=== PATIENT | female | born 1970 | race Hispanic/Latino ===

== ENCOUNTER 2023-04-04 06:54 | Day surgery (SDC) | payer OTHER ==
[2023-04-02 12:05] LABS: BASOPHILS % (AUTO) 0.4 % (0.0-5.0); EOSINOPHILS % (AUTO) 1.2 % (0.0-8.0); HEMATOCRIT 44.4 % (36-48); LYMPHOCYTES % (AUTO) 35.7 % (21.0-51.0); MEAN CORPUSCULAR HGB CONC 33.6 g/dL (32.0-36.0); MEAN CORPUSCULAR VOLUME 89.3 fL (79-99); MONOCYTES % (AUTO) 7.5 % (3.0-13.0); NEUTROPHILS % (AUTO) 54.9 % (40.0-77.0); PLATELET COUNT (AUTO) 244 K/uL (130-400); RED BLOOD CELL COUNT(AUTO) 4.97 MIL/uL (4.00-5.50); RED CELL DISTRIBUTION WIDTH 12.3 % (11.0-15.5); WHITE BLOOD COUNT (AUTO) 6.9 K/uL (4.8-10.8)
[2023-04-03 09:53] VITALS: BP 124/70
[2023-04-04] VITALS (18 sets, daily range): BP systolic 98–128; BP diastolic 50–78
[~2023-04-04] VITALS: Ht 162.6 cm; Wt 92.3 kg
[2023-04-04] MEDS ORDERED: LACTATED RINGERS 1000ML 1,000 ML IV ONE (07:01)
[2023-04-04] MEDS ORDERED: FENTANYL CITRATE PF 50 MCG/1 ML 2ML VIAL ONE (07:23)
[2023-04-04] MEDS ORDERED: ONDANSETRON 4MG INJ ONE ×2 (07:23→09:16)
[2023-04-04] MEDS ORDERED: MIDAZOLAM HCL 1 MG/ML 2ML VIAL ONE (07:23)
[2023-04-04] MEDS ORDERED: DEXAMETHASONE SOD PHOSPHATE 10MG/ML 1ML VIAL ONE (07:23)
[2023-04-04] MEDS ORDERED: LIDOCAINE PF 100MG/5ML (2%) SYRINGE 5ML ONE (07:23)
[2023-04-04] MEDS ORDERED: PROPOFOL 10 MG/ML 20ML VIAL IV ONE (07:23)
[2023-04-04] MEDS ORDERED: STRONG IODINE SOLN 14ML BOTTLE ONE (08:06)
[2023-04-04] MEDS ORDERED: LIDOCAINE 1%-EPI 1:100,000 20 ML VIAL IJ ONE ×2 (08:26→08:28)
[2023-04-04] MEDS ORDERED: STRONG IODINE SOLN 14ML BOTTLE TP ONE (08:26)
[2023-04-04] MEDS ORDERED: FERRIC SUBSULFATE ML TP ONE ×2 (08:26→08:40)
[2023-04-04] MEDS ORDERED: MEPERIDINE-PF 25 MG/ML SYG ONE (09:16)
== END 2023-04-04 10:50 | disposition home or self-care (01) ==
LOC: DAH 06:54
PROVIDERS: ATTEND Obstetrics & Gynecology
DX: R87.613 High grade squamous intraepithelial lesion on cytologic smear of cervix (HGSIL) (principal); Z20.822 Contact with and (suspected) exposure to COVID-19; C53.9 Malignant neoplasm of cervix uteri, unspecified; N72 Inflammatory disease of cervix uteri; E66.01 Morbid (severe) obesity due to excess calories; Z98.891 History of uterine scar from previous surgery; Z82.49 Family history of ischemic heart disease and other diseases of the circulatory system; Z83.3 Family history of diabetes mellitus; Z80.0 Family history of malignant neoplasm of digestive organs; Z80.6 Family history of leukemia; Z83.49 Family history of other endocrine, nutritional and metabolic diseases; Z68.34 Body mass index [BMI] 34.0-34.9, adult
CPT/HCPCS: 84703; 85025; 87426; 36415; 57520; A4663; A4351; J7120; J3010; J3490 ×2; J1100; J2001; J2250; J2704; J2405 ×2; J2175; A4215 ×2; A4223; A4222; A4221

== ENCOUNTER → 2023-05-09 | Outpatient (CLI) | payer OTHER | END | disposition home or self-care (01) | LOC: RAH 15:06 | PROVIDERS: ATTEND Obstetrics & Gynecology | DX: Z12.31 Encounter for screening mammogram for malignant neoplasm of breast (principal) | CPT/HCPCS: 77067 ==

== ENCOUNTER 2023-05-30 06:03 | Day surgery (SDC) | payer OTHER ==
[2023-05-28 10:36] VITALS: BP 137/70; PULSE 55; RESP 16
[2023-05-28 10:49] LABS: BASOPHILS # (AUTO) 0.05 K/uL (0.00-0.20); BASOPHILS % (AUTO) 0.6 % (0.0-5.0); EOSINOPHILS # (AUTO) 0.12 K/uL (0.00-0.70); EOSINOPHILS % (AUTO) 1.4 % (0.0-8.0); IMMATURE GRANULOCYTE ABSOLUTE 0.02 K/uL (0-1); LYMPHOCYTES # (AUTO) 2.6 K/uL (1.0-4.8); LYMPHOCYTES % (AUTO) 30.3 % (21.0-51.0); MEAN CORPUSCULAR VOLUME 90.9 fL (79-99); MONOCYTES # (AUTO) 0.7 K/uL (0.1-1.0); MONOCYTES % (AUTO) 8.5 % (3.0-13.0); PLATELET COUNT (AUTO) 213 K/uL (130-400); RED BLOOD CELL COUNT(AUTO) 4.73 MIL/uL (4.00-5.50); WHITE BLOOD COUNT (AUTO) 8.5 K/uL (4.8-10.8)
[2023-05-30] VITALS (22 sets, daily range): BP systolic 94–132; BP diastolic 58–79; PULSE 58–72; RESP 12–18
[~2023-05-30] VITALS: Ht 162.6 cm; Wt 92.4 kg
[2023-05-30] MEDS ORDERED: BUPIVACAINE/PF 0.25% 30ML VIAL IJ ONE ×3 (09:03→13:00)
[2023-05-30] MEDS ORDERED: CEFAZOLIN SODIUM 2 GM VIAL ONE (11:33)
[2023-05-30] MEDS ORDERED: DEXAMETHASONE SOD PHOSPHATE 4 MG/ML 1ML VIAL ONE (11:33)
[2023-05-30] MEDS ORDERED: DEXAMETHASONE SOD PHOSPHATE 10MG/ML 1ML VIAL ONE (11:34)
[2023-05-30] MEDS ORDERED: LIDOCAINE PF 100MG/5ML (2%) SYRINGE 5ML ONE (11:34)
[2023-05-30] MEDS ORDERED: SCOPOLAMINE HYDROBROMIDE 1 EACH ADH..PATCH TD ONE (11:34)
[2023-05-30] MEDS ORDERED: LACTATED RINGERS 1000ML 1,000 ML IV ONE (11:34)
[2023-05-30] MEDS ORDERED: METRONIDAZOLE 500MG/100ML BAG 100 ML ONE (11:34)
[2023-05-30] MEDS ORDERED: GLYCOPYRROLATE 1 MG/5 ML SYRINGE ONE (11:34)
[2023-05-30] MEDS ORDERED: PHENAZOPYRIDINE HCL 200 MG TABLET ONE (11:34)
[2023-05-30] MEDS ORDERED: SUCCINYLCHOLINE 200MG/10ML SYR ONE (11:34)
[2023-05-30] MEDS ORDERED: PROPOFOL 10 MG/ML 20ML VIAL IV ONE (11:35)
[2023-05-30] MEDS ORDERED: NEOSTIGMINE 5MG/5ML SYR IV ONE (11:35)
[2023-05-30] MEDS ORDERED: ONDANSETRON 4MG INJ ONE ×2 (11:35→15:35)
[2023-05-30] MEDS ORDERED: MIDAZOLAM HCL 1 MG/ML 2ML VIAL ONE (11:35)
[2023-05-30] MEDS ORDERED: ROCURONIUM 10MG/1ML SYR 10 MG/ML ML ONE (11:35)
[2023-05-30] MEDS ORDERED: FENTANYL CITRATE PF 50 MCG/1 ML 2ML VIAL ONE (11:37)
[2023-05-30] MEDS ORDERED: LIDOCAINE HCL 400MG/20ML VIAL ONE (12:05)
[2023-05-30] MEDS ORDERED: MORPHINE PF 100MG/10ML AMP IV ONE (12:06)
[2023-05-30] MEDS ORDERED: KETAMINE 50MG/ML SYRINGE 50 MG/ML DISP.SYRIN ONE (12:06)
[2023-05-30] MEDS ORDERED: KETOROLAC 30MG VIAL (30MG/ML) ONE (12:07)
[2023-05-30] MEDS ORDERED: CEFAZOLIN SODIUM 2 GM VIAL IVPB ONE (12:40)
[2023-05-30] MEDS ORDERED: MEPERIDINE-PF 25 MG/ML SYG ONE (15:05)
[2023-05-30] MEDS ORDERED: ACETAMINOPHEN 500 MG TABLET ONE (15:35)
[2023-05-30] MEDS ORDERED: MORPHINE 10MG VIAL ONE (15:35)
== END 2023-05-30 18:00 | disposition home or self-care (01) ==
LOC: DAH 06:03
PROVIDERS: ATTEND Obstetrics & Gynecology
DX: C53.9 Malignant neoplasm of cervix uteri, unspecified (principal); Z20.822 Contact with and (suspected) exposure to COVID-19; N93.9 Abnormal uterine and vaginal bleeding, unspecified; R87.613 High grade squamous intraepithelial lesion on cytologic smear of cervix (HGSIL); Z98.890 Other specified postprocedural states; Z98.891 History of uterine scar from previous surgery; Z82.49 Family history of ischemic heart disease and other diseases of the circulatory system; Z83.3 Family history of diabetes mellitus; Z80.0 Family history of malignant neoplasm of digestive organs; Z79.899 Other long term (current) drug therapy; Z79.01 Long term (current) use of anticoagulants
CPT/HCPCS: 58571; S2900; 36415; 84703; 85025; 86850; 86900; 86901; 88309; A4344; J0330; J1100; J1885; J2001; J2175; J2250; J2270; J2274; J2405; J2704; J2710; J3010; J3490; J7030; J7120; A4215; A4221; A4222; A4223; A4510; A4600; A4649; A4663; A4930; A6260; G0168; J0690

== ENCOUNTER 2023-05-30 09:07 | Emergency (ER) | payer OTHER ==
[~2023-05-30] VITALS: Ht 162.6 cm; Wt 92.1 kg
[2023-05-30 09:14] VITALS: BP 121/57; PULSE 64; RESP 16; O2SAT 100
[2023-05-30 09:38] LABS: BASOPHILS # (AUTO) 0.04 K/uL (0.00-0.20); BASOPHILS % (AUTO) 0.5 % (0.0-5.0); EOSINOPHILS # (AUTO) 0.15 K/uL (0.00-0.70); EOSINOPHILS % (AUTO) 1.8 % (0.0-8.0); HEMATOCRIT 43.3 % (36-48); IMMATURE GRANULOCYTE ABSOLUTE 0.02 K/uL (0-1); LYMPHOCYTES # (AUTO) 2.8 K/uL (1.0-4.8); LYMPHOCYTES % (AUTO) 33.8 % (21.0-51.0); MEAN CORPUSCULAR HEMOGLOBIN 29.7 pg (27.0-33.0); MONOCYTES # (AUTO) 0.9 K/uL (0.1-1.0); MONOCYTES % (AUTO) 11.2 % (3.0-13.0); NEUTROPHILS # (AUTO) 4.4 K/uL (1.8-7.7); NEUTROPHILS % (AUTO) 52.5 % (40.0-77.0); PLATELET COUNT (AUTO) 224 K/uL (130-400); RED BLOOD CELL COUNT(AUTO) 4.81 MIL/uL (4.00-5.50); RED CELL DISTRIBUTION WIDTH 12.2 % (11.0-15.5); WHITE BLOOD COUNT (AUTO) 8.4 K/uL (4.8-10.8)
[2023-05-30 09:55] LABS: ALBUMIN 3.8 g/dL (3.5-5.0); BILIRUBIN,TOTAL 0.5 mg/dL (0.2-1.0); CREATININE 0.6 mg/dL (0.5-1.5); POTASSIUM 4.2 mmol/L (3.5-5.1); TOTAL PROTEIN, SERUM 7.4 g/dL (6.0-8.3)
[2023-05-30 10:04] LABS: APPEARANCE,URINE CLEAR (CLEAR); BILIRUBIN,URINE NEGATIVE (NEGATIVE); COLOR,URINE LIGHT-YELLOW (YELLOW); GLUCOSE, URINE (UA) NEGATIVE (NEGATIVE); KETONES,URINE NEGATIVE (NEGATIVE); LEUKOCYTE ESTERASE ,URINE NEGATIVE Leu/uL (NEGATIVE); NITRATE,URINE NEGATIVE (NEGATIVE); OCCULT BLOOD,URINE NEGATIVE (NEGATIVE); PH,URINE 6.5 (5.0-8.0); PROTEIN,URINE NEGATIVE (NEGATIVE); UROBILINOGEN,URINE 0.2 mg/dL (0.2-1.0)
[2023-05-30 10:06] LABS: ADD UA MICROSCOPIC NO
[2023-05-30 10:07] LABS: HCG,QUALITATIVE URINE NEGATIVE (NEGATIVE)
== END 2023-05-30 11:25 | disposition still patient (30) ==
LOC: EDH 09:07
DX: R10.2 Pelvic and perineal pain (principal); N93.9 Abnormal uterine and vaginal bleeding, unspecified; Z53.21 Procedure and treatment not carried out due to patient leaving prior to being seen by health care provider
CPT/HCPCS: 36415; 80053; 81003; 81025; 85025; 86850; 86900; 86901; 99281